=== PATIENT | male | born 1955 | race Caucasian/White ===

== ENCOUNTER 2018-03-04 08:08 | Emergency (ER) | payer OTHER ==
[2018-03-04] MEDS: SOD CHLORIDE 0.9% 1,000 ML IV (09:17)
[2018-03-04] MEDS: LORAZEPAM 2 MG INJ IV (09:17)
[2018-03-04 09:45] LABS: ADD MAN DIFF? NO
[2018-03-04 09:47] LABS: BASOPHIL # 0.1 10^3/ul (0.0-0.1); BASOPHILS % 0.9 % (0.0-2.0); EOSINOPHILS # 0.1 10^3/ul (0.0-0.5); EOSINOPHILS % 0.5 % (0.0-7.0); HEMATOCRIT 34.4 % (42.0-52.0); HEMOGLOBIN 11.1 g/dl (14.0-18.0); LYMPHOCYTES % 8.7 % (15.0-51.0); MEAN CORPUSCULAR HEMOGLOBIN 27.1 pg (29.0-33.0); MEAN CORPUSCULAR HGB CONC 32.3 g/dl (32.0-37.0); MEAN CORPUSCULAR VOLUME 83.9 fl (82.0-101.0); MONOCYTE # 1.1 10^3/ul (0.3-0.9); MONOCYTES % 9.2 % (0.0-11.0); NEUTROPHIL # 9.6 10^3/ul (1.6-7.5); NEUTROPHILS % 80.2 % (39.0-77.0); PLATELET COUNT 299 10^3/UL (140-415); RED CELL DISTRIBUTION WIDTH 15.9 % (11.5-14.5)
[2018-03-04 10:21] LABS: ALANINE AMINOTRANSFERASE 29 IU/L (13-69); ALBUMIN 3.8 g/dl (3.3-4.9); ALBUMIN/GLOBULIN RATIO 1.15; ALKALINE PHOSPHATASE 116 IU/L (42-121); ANION GAP 14 (8-16); ASPARTATE AMINO TRANSFERASE 45 IU/L (15-46); BILIRUBIN,INDIRECT 0.7 mg/dl (0-1.1); BILIRUBIN,TOTAL 0.7 mg/dl (0.2-1.3); BLOOD UREA NITROGEN 14 mg/dl (7-20); CALCIUM 8.4 mg/dl (8.4-10.2); CARBON DIOXIDE 27 mmol/L (21-31); CHLORIDE 99 mmol/L (97-110); CREATININE 0.72 mg/dl (0.61-1.24); GLUCOSE 83 mg/dl (70-220); LIPASE 125 U/L (23-300); POTASSIUM 4.2 mmol/L (3.5-5.1); SODIUM 136 mmol/L (135-144); TOTAL PROTEIN 7.1 g/dl (6.1-8.1)
[2018-03-04] MEDS: LORAZEPAM 1 MG TAB PO (11:14)
[2018-03-04] MEDS: ENALAPRILAT 1.25 MG INJ IV (11:15)
[2018-03-04] MEDS: KETOROLAC 15 MG INJ IV (11:36)
== END 2018-03-04 15:10 | disposition home or self-care (01) ==
LOC: E/R 08:08
DX: I10 Essential (primary) hypertension (principal); F10.239 Alcohol dependence with withdrawal, unspecified; E86.0 Dehydration
CPT/HCPCS: 36415; 80053; 83690; 85025; 93005; 96374; 96375; 99284-25

== ENCOUNTER 2018-09-11 12:06 | Inpatient (IN) | payer OTHER ==
[~2018-09-11 12:06] MED LIST: LACTATED RINGER'S 1,000 ML IV
[2018-09-11] MEDS ORDERED: DESFLURANE 15 MIN (13:30)
[2018-09-11] MEDS ORDERED: FENTAnyl 50 MCG/ML VIAL (13:36)
[2018-09-11] MEDS ORDERED: ROCURONIUM 50 MG INJ (13:36)
[2018-09-11] MEDS ORDERED: DEXAMETHASONE 4 MG/ML 1 ML INJ (13:36)
[2018-09-11] MEDS ORDERED: PROPOFOL 20 ML (13:36)
[2018-09-11] MEDS ORDERED: ONDANSETRON 4 MG INJ (13:36)
[2018-09-11] MEDS ORDERED: NEOSTIGMINE 3 MG/3 ML SYRINGE (13:36)
[2018-09-11] MEDS ORDERED: GLYCOPYRROLATE 0.4 MG INJ (13:36)
[2018-09-11] MEDS ORDERED: MIDAZOLAM 1 MG/ML 2 ML INJ (13:36)
[2018-09-11] MEDS ORDERED: CEFAZOLIN 1 GM INJ (13:36)
[2018-09-11] MEDS ORDERED: ROPIVACAINE 0.5 % 30 ML VIAL (13:38)
[2018-09-11 13:53] LABS: ADD MAN DIFF? NO
[2018-09-11 13:56] LABS: BASOPHIL # 0.2 10^3/ul (0.0-0.1); BASOPHILS % 2.5 % (0.0-2.0); EOSINOPHILS # 0.5 10^3/ul (0.0-0.5); EOSINOPHILS % 5.5 % (0.0-7.0); HEMATOCRIT 42.6 % (42.0-52.0); HEMOGLOBIN 13.4 g/dl (14.0-18.0); LYMPHOCYTES # 1.9 10^3/ul (0.8-2.9); MEAN CORPUSCULAR HEMOGLOBIN 26.5 pg (29.0-33.0); MEAN CORPUSCULAR HGB CONC 31.5 g/dl (32.0-37.0); MEAN CORPUSCULAR VOLUME 84.4 fl (82.0-101.0); MEAN PLATELET VOLUME 9.9 fl (7.4-10.4); MONOCYTE # 0.8 10^3/ul (0.3-0.9); MONOCYTES % 9.5 % (0.0-11.0); NEUTROPHILS % 59.3 % (39.0-77.0); PLATELET COUNT 293 10^3/UL (140-415); RED BLOOD COUNT 5.05 10^6/ul (4.70-6.10)
[2018-09-11 13:56] LABS: WHITE BLOOD COUNT 8.4 10^3/ul (4.8-10.8)
[2018-09-11 14:19] LABS: ALANINE AMINOTRANSFERASE 16 IU/L (13-69); ALBUMIN 4.6 g/dl (3.3-4.9); ALBUMIN/GLOBULIN RATIO 1.31; ALKALINE PHOSPHATASE 102 IU/L (42-121); ANION GAP 11 (5-13); ASPARTATE AMINO TRANSFERASE 26 IU/L (15-46); BILIRUBIN,INDIRECT 0.5 mg/dl (0-1.1); BILIRUBIN,TOTAL 0.5 mg/dl (0.2-1.3); BLOOD UREA NITROGEN 19 mg/dl (7-20); CALCIUM 9.6 mg/dl (8.4-10.2); CARBON DIOXIDE 28 mmol/L (21-31); CHLORIDE 99 mmol/L (97-110); CREATININE 1.01 mg/dl (0.61-1.24); Estimated GFR > 60 mL/min (>60); GLUCOSE 92 mg/dl (70-220); POTASSIUM 4.7 mmol/L (3.5-5.1); SODIUM 138 mmol/L (135-144); TOTAL PROTEIN 8.1 g/dl (6.1-8.1)
[2018-09-11] MEDS ORDERED: HYDROmorphONE 1 MG/5 ML IV SYRINGE IV (14:30)
[2018-09-11] MEDS ORDERED: hydrALAzine 20 MG INJ IV (14:30)
[2018-09-11] MEDS ORDERED: LABETALOL HCL 20MG INJ IV (14:30)
[2018-09-11] MEDS ORDERED: IPRATROPIUM (NEB) 0.5 MG/2.5 ML AMP HHN (14:30)
[2018-09-11] MEDS ORDERED: DIPHENHYDRAMINE 50 MG INJ IV (14:30)
[2018-09-11] MEDS ORDERED: MEPERIDINE 25 MG INJ IV (14:30)
[2018-09-11] MEDS ORDERED: FENTAnyl 50 MCG/ML VIAL IV ×3 (14:30)
[2018-09-11] MEDS ORDERED: EPHEDrine SULFATE 50 MG/5 ML SYG IV (14:30)
[2018-09-11] MEDS ORDERED: OXYCODONE/ACETAMINOPHEN (5/325) TAB PO ×2 (14:30)
[2018-09-11] MEDS ORDERED: ALBUTEROL 0.083% (NEB) 2.5 MG/3 ML AMP HHN (14:30)
[2018-09-11] MEDS ORDERED: MIDAZOLAM 1 MG/ML 2 ML INJ IV (14:30)
[2018-09-11] MEDS ORDERED: TRIMETHOBENZAMIDE 100 MG/ML VIAL IM (14:30)
[2018-09-11] MEDS ORDERED: TOBRAMYCIN 1.2 GM POWDER ×2 (15:45→16:14)
[2018-09-11] MEDS: TOBRAMYCIN 1.2 GM POWDER ×2 (15:56→15:59)
[2018-09-11] MEDS: VANCOMYCIN 1 GM INJ ×2 (15:56→15:58)
[2018-09-11] MEDS ORDERED: SUGAMMADEX SODIUM 200 MG/2 ML VIAL IV (17:20)
[2018-09-11] MEDS: HYDROmorphONE 1 MG/5 ML IV SYRINGE IV ×3 (17:58→18:17)
[2018-09-11] MEDS: ONDANSETRON 4 MG INJ IV (17:59)
[2018-09-11] MEDS ORDERED: HYDROCODONE/APAP (10/325) TAB PO (18:00)
[2018-09-11] MEDS ORDERED: ONDANSETRON 4 MG INJ IV (18:30)
[2018-09-11] MEDS ORDERED: HYDROmorphONE 0.5 MG/0.5 ML SYG IV (18:30)
[2018-09-11] MEDS ORDERED: ACETAMINOPHEN 325 MG TAB PO (18:30)
[2018-09-11] MEDS ORDERED: NACL 0.9% 3 ML SYG IV (18:30)
[2018-09-11] MEDS: SOD CHLORIDE 0.9% 1,000 ML IV (20:27)
[2018-09-11] MEDS: GABAPENTIN 300 MG CAP PO (20:27)
[2018-09-11] MEDS: ATORVASTATIN 40 MG TAB PO (20:27)
[2018-09-11] MEDS: MEROPENEM 1 GM/50ML(PMX) 50 ML IVPB (20:27)
[2018-09-11] MEDS: HYDROmorphONE 1 MG/ML SYG IV (20:28)
[2018-09-12] MEDS: HYDROmorphONE 1 MG/ML SYG IV ×7 (05:15→21:11)
[2018-09-12] MEDS: MEROPENEM 1 GM/50ML(PMX) 50 ML IVPB ×3 (05:15→21:08)
[2018-09-12 07:20] LABS: ADD MAN DIFF? NO
[2018-09-12 07:26] LABS: ABNORMAL IP MESSAGE 1; BASOPHILS % 0.2 % (0.0-2.0); EOSINOPHILS % 0.1 % (0.0-7.0); HEMATOCRIT 36.7 % (42.0-52.0); HEMOGLOBIN 11.7 g/dl (14.0-18.0); LYMPHOCYTES # 0.5 10^3/ul (0.8-2.9); LYMPHOCYTES % 3.9 % (15.0-51.0); MEAN CORPUSCULAR HEMOGLOBIN 26.9 pg (29.0-33.0); MEAN CORPUSCULAR HGB CONC 31.9 g/dl (32.0-37.0); MEAN CORPUSCULAR VOLUME 84.4 fl (82.0-101.0); MEAN PLATELET VOLUME 10.9 fl (7.4-10.4); MONOCYTE # 0.5 10^3/ul (0.3-0.9); MONOCYTES % 4.2 % (0.0-11.0); NEUTROPHIL # 11.6 10^3/ul (1.6-7.5); PLATELET COUNT 260 10^3/UL (140-415); POSITIVE DIFF @See below; RED BLOOD COUNT 4.35 10^6/ul (4.70-6.10); RED CELL DISTRIBUTION WIDTH 18.7 % (11.5-14.5)
[2018-09-12 07:26] LABS: WHITE BLOOD COUNT 12.7 10^3/ul (4.8-10.8)
[2018-09-12 07:42] LABS: ALANINE AMINOTRANSFERASE 19 IU/L (13-69); ALBUMIN 3.9 g/dl (3.3-4.9); ALBUMIN/GLOBULIN RATIO 1.25; ALKALINE PHOSPHATASE 76 IU/L (42-121); ANION GAP 10 (5-13); ASPARTATE AMINO TRANSFERASE 26 IU/L (15-46); BILIRUBIN,INDIRECT 0.3 mg/dl (0-1.1); BILIRUBIN,TOTAL 0.3 mg/dl (0.2-1.3); BLOOD UREA NITROGEN 24 mg/dl (7-20); CALCIUM 9.5 mg/dl (8.4-10.2); CARBON DIOXIDE 29 mmol/L (21-31); CHLORIDE 99 mmol/L (97-110); CREATININE 1.08 mg/dl (0.61-1.24); Estimated GFR > 60 mL/min (>60); GLUCOSE 133 mg/dl (70-220); MAGNESIUM 1.9 mg/dl (1.7-2.5); SODIUM 138 mmol/L (135-144)
[2018-09-12] MEDS: LISINOPRIL 20 MG TAB PO (08:19)
[2018-09-12] MEDS: CHLORTHALIDONE 25 MG TAB PO (08:19)
[2018-09-12] MEDS: GABAPENTIN 300 MG CAP PO ×3 (08:19→21:08)
[2018-09-12] MEDS: AMLODIPINE 10 MG TAB PO (08:19)
[2018-09-12] MEDS ORDERED: VANCOMYCIN IV PER PHARMACY XX (09:30)
[2018-09-12] MEDS: SOD CHLORIDE 0.9% 1,000 ML IV ×2 (11:09→21:15)
[2018-09-12] MEDS: SENNA TAB PO (12:45)
[2018-09-12] MEDS: VANCOMYCIN 750 MG in SOD CHLORIDE 0.9% 150 ML IVPB (12:46)
[2018-09-12] MEDS: NICOTINE (7 MG/24 HR) PATCH TRANSDERM (12:46)
[2018-09-12] MEDS: morphine 2 MG INJ IV (14:54)
[2018-09-12] MEDS: ATORVASTATIN 40 MG TAB PO (21:08)
[2018-09-13] MEDS: HYDROmorphONE 1 MG/ML SYG IV ×6 (00:02→16:23)
[2018-09-13] MEDS: VANCOMYCIN 750 MG in SOD CHLORIDE 0.9% 150 ML IVPB ×2 (00:41→16:23)
[2018-09-13] MEDS: MEROPENEM 1 GM/50ML(PMX) 50 ML IVPB ×3 (05:35→21:56)
[2018-09-13] MEDS: OXYCODONE/ACETAMINOPHEN (5/325) TAB PO ×3 (07:54→23:35)
[2018-09-13] MEDS: GABAPENTIN 300 MG CAP PO ×3 (08:34→20:28)
[2018-09-13] MEDS: AMLODIPINE 10 MG TAB PO (08:35)
[2018-09-13] MEDS: NICOTINE (7 MG/24 HR) PATCH TRANSDERM (08:35)
[2018-09-13] MEDS: SENNA TAB PO (08:35)
[2018-09-13] MEDS: LISINOPRIL 20 MG TAB PO (08:35)
[2018-09-13] MEDS: CHLORTHALIDONE 25 MG TAB PO (08:35)
[2018-09-13] MEDS: DOCUSATE SODIUM 250 MG CAP PO (08:36)
[2018-09-13] MEDS: MUPIROCIN 2% 22 GM OINT TOP ×2 (13:31→20:28)
[2018-09-13 14:55] LABS: VANCOMYCIN,TROUGH 8.6 ug/ml (10.0-20.0)
[2018-09-13] MEDS: LIDOCAINE 1% (MPF) 5 ML VIAL SC (15:55)
[2018-09-13] MEDS ORDERED: morphine 4 MG/ML VIAL IV (17:30)
[2018-09-13] MEDS ORDERED: LACTOBACILLUS RHAMNOSUS CAP (19:51)
[2018-09-13] MEDS: morphine 2 MG INJ IV (20:22)
[2018-09-13] MEDS: LACTOBACILLUS RHAMNOSUS CAP PO (20:28)
[2018-09-13] MEDS: ATORVASTATIN 40 MG TAB PO (20:28)
[2018-09-13] MEDS: VANCOMYCIN 1 GM 250 ML IVPB (23:27)
[2018-09-14] MEDS ORDERED: VANCOMYCIN 1 GM 250 ML IVPB (01:00)
[2018-09-14] MEDS: morphine 2 MG INJ IV (01:16)
[2018-09-14] MEDS: SOD CHLORIDE 0.9% 1,000 ML IV (02:16)
[2018-09-14] MEDS: MEROPENEM 1 GM/50ML(PMX) 50 ML IVPB ×2 (05:22→15:29)
[2018-09-14] MEDS: LEVOFLOXACIN 500 MG TAB PO (05:23)
[2018-09-14] MEDS: HYDROmorphONE 1 MG/ML SYG IV ×6 (06:31→22:56)
[2018-09-14 07:14] LABS: BLOOD UREA NITROGEN 18 mg/dl (7-20)
[2018-09-14 07:14] LABS: CREATININE 0.95 mg/dl (0.61-1.24)
[2018-09-14] MEDS: CHLORTHALIDONE 25 MG TAB PO (08:50)
[2018-09-14] MEDS: GABAPENTIN 300 MG CAP PO ×3 (08:51→21:18)
[2018-09-14] MEDS: AMLODIPINE 10 MG TAB PO (08:51)
[2018-09-14] MEDS: LACTOBACILLUS RHAMNOSUS CAP PO ×2 (08:51→21:17)
[2018-09-14] MEDS: LISINOPRIL 20 MG TAB PO (08:52)
[2018-09-14] MEDS: MUPIROCIN 2% 22 GM OINT TOP ×2 (08:52→21:18)
[2018-09-14] MEDS: NICOTINE (7 MG/24 HR) PATCH TRANSDERM (08:53)
[2018-09-14] MEDS: DOCUSATE SODIUM 250 MG CAP PO (09:00)
[2018-09-14] MEDS: SENNA TAB PO (09:00)
[2018-09-14] MEDS: VANCOMYCIN 1.25 GM in SOD CHLORIDE 0.9% 250 ML IVPB (12:14)
[2018-09-14] MEDS: DEXTROSE 5%-0.45% NACL 1,000 ML IV ×2 (13:01→22:30)
[2018-09-14] MEDS: OXYCODONE/ACETAMINOPHEN (5/325) TAB PO ×2 (14:04→21:23)
[2018-09-14 15:27] LABS: C-REACTIVE PROTEIN 0.6 mg/dl (0.0-0.9)
[2018-09-14] MEDS: ATORVASTATIN 40 MG TAB PO (21:17)
[2018-09-15] MEDS: VANCOMYCIN 1.25 GM in SOD CHLORIDE 0.9% 250 ML IVPB ×2 (00:12→11:50)
[2018-09-15] MEDS: HYDROmorphONE 1 MG/ML SYG IV ×6 (02:16→21:05)
[2018-09-15 05:17] LABS: ADD MAN DIFF? NO
[2018-09-15 05:20] LABS: WHITE BLOOD COUNT 12.1 10^3/ul (4.8-10.8)
[2018-09-15 05:20] LABS: BASOPHIL # 0.2 10^3/ul (0.0-0.1); BASOPHILS % 1.4 % (0.0-2.0); EOSINOPHILS # 0.7 10^3/ul (0.0-0.5); EOSINOPHILS % 5.6 % (0.0-7.0); HEMATOCRIT 33.8 % (42.0-52.0); HEMOGLOBIN 10.6 g/dl (14.0-18.0); LYMPHOCYTES # 2.3 10^3/ul (0.8-2.9); LYMPHOCYTES % 19.3 % (15.0-51.0); MEAN CORPUSCULAR HGB CONC 31.4 g/dl (32.0-37.0); MEAN PLATELET VOLUME 10.6 fl (7.4-10.4); MONOCYTE # 1.4 10^3/ul (0.3-0.9); MONOCYTES % 11.7 % (0.0-11.0); NEUTROPHIL # 7.4 10^3/ul (1.6-7.5); NEUTROPHILS % 61.5 % (39.0-77.0); PLATELET COUNT 232 10^3/UL (140-415); RED BLOOD COUNT 3.93 10^6/ul (4.70-6.10); RED CELL DISTRIBUTION WIDTH 19.7 % (11.5-14.5)
[2018-09-15] MEDS: DEXTROSE 5%-0.45% NACL 1,000 ML IV ×2 (05:23→17:50)
[2018-09-15] MEDS: LEVOFLOXACIN 500 MG TAB PO (05:28)
[2018-09-15 05:50] LABS: ANION GAP 10 (5-13); BLOOD UREA NITROGEN 18 mg/dl (7-20); CALCIUM 8.6 mg/dl (8.4-10.2); CARBON DIOXIDE 29 mmol/L (21-31); CHLORIDE 101 mmol/L (97-110); CREATININE 1.08 mg/dl (0.61-1.24); Estimated GFR > 60 mL/min (>60); GLUCOSE 96 mg/dl (70-220); MAGNESIUM 2.2 mg/dl (1.7-2.5); PHOSPHORUS 4.4 mg/dl (2.5-4.9); POTASSIUM 4.7 mmol/L (3.5-5.1); SODIUM 140 mmol/L (135-144)
[2018-09-15] MEDS ORDERED: HYDROmorphONE 1 MG/5 ML IV SYRINGE IV ×2 (08:00)
[2018-09-15] MEDS ORDERED: MEPERIDINE 25 MG INJ IV (08:00)
[2018-09-15] MEDS ORDERED: ONDANSETRON 4 MG INJ IV (08:00)
[2018-09-15] MEDS ORDERED: DIPHENHYDRAMINE 50 MG INJ IV (08:00)
[2018-09-15] MEDS ORDERED: MIDAZOLAM 1 MG/ML 2 ML INJ (08:07)
[2018-09-15] MEDS ORDERED: METOCLOPRAMIDE 10 MG INJ (08:07)
[2018-09-15] MEDS ORDERED: FENTAnyl 50 MCG/ML VIAL (08:09)
[2018-09-15] MEDS ORDERED: ONDANSETRON 4 MG INJ (08:09)
[2018-09-15] MEDS ORDERED: PROPOFOL 20 ML (08:09)
[2018-09-15] MEDS ORDERED: EPHEDrine SULFATE 50 MG/5 ML SYG (08:22)
[2018-09-15] MEDS: BACITRACIN 50000 UNITS INJ (08:35)
[2018-09-15] MEDS: POLYMYXIN B 500000 UNIT INJ (08:35)
[2018-09-15] MEDS: DOCUSATE SODIUM 250 MG CAP PO (09:00)
[2018-09-15] MEDS: SENNA TAB PO (09:00)
[2018-09-15] MEDS: HYDROmorphONE 1 MG/5 ML IV SYRINGE IV (10:21)
[2018-09-15] MEDS: MUPIROCIN 2% 22 GM OINT TOP ×2 (10:53→21:07)
[2018-09-15] MEDS: NICOTINE (14 MG/24 HR) PATCH TRANSDERM (10:54)
[2018-09-15] MEDS: GABAPENTIN 300 MG CAP PO ×3 (10:54→21:05)
[2018-09-15] MEDS: AMLODIPINE 10 MG TAB PO (10:55)
[2018-09-15] MEDS: CHLORTHALIDONE 25 MG TAB PO (10:55)
[2018-09-15] MEDS: LACTOBACILLUS RHAMNOSUS CAP PO ×2 (10:55→21:06)
[2018-09-15] MEDS: LISINOPRIL 20 MG TAB PO (10:57)
[2018-09-15] MEDS: ATORVASTATIN 40 MG TAB PO (21:05)
[2018-09-15] MEDS: OXYCODONE/ACETAMINOPHEN (5/325) TAB PO (22:13)
[2018-09-16] MEDS: HYDROmorphONE 1 MG/ML SYG IV ×8 (00:09→23:24)
[2018-09-16] MEDS: VANCOMYCIN 1.25 GM in SOD CHLORIDE 0.9% 250 ML IVPB (00:09)
[2018-09-16] MEDS: DEXTROSE 5%-0.45% NACL 1,000 ML IV (04:23)
[2018-09-16] MEDS: OXYCODONE/ACETAMINOPHEN (5/325) TAB PO ×2 (04:40→20:51)
[2018-09-16 05:35] LABS: ADD MAN DIFF? NO
[2018-09-16 05:50] LABS: WHITE BLOOD COUNT 8.9 10^3/ul (4.8-10.8)
[2018-09-16 05:50] LABS: BASOPHIL # 0.1 10^3/ul (0.0-0.1); BASOPHILS % 1.2 % (0.0-2.0); EOSINOPHILS # 0.7 10^3/ul (0.0-0.5); EOSINOPHILS % 7.4 % (0.0-7.0); HEMATOCRIT 29.5 % (42.0-52.0); HEMOGLOBIN 9.4 g/dl (14.0-18.0); LYMPHOCYTES # 1.7 10^3/ul (0.8-2.9); LYMPHOCYTES % 18.5 % (15.0-51.0); MEAN CORPUSCULAR HEMOGLOBIN 27.3 pg (29.0-33.0); MEAN CORPUSCULAR HGB CONC 31.9 g/dl (32.0-37.0); MEAN CORPUSCULAR VOLUME 85.8 fl (82.0-101.0); MEAN PLATELET VOLUME 10.5 fl (7.4-10.4); MONOCYTES % 11.3 % (0.0-11.0); NEUTROPHIL # 5.5 10^3/ul (1.6-7.5); NEUTROPHILS % 61.3 % (39.0-77.0); PLATELET COUNT 225 10^3/UL (140-415); RED BLOOD COUNT 3.44 10^6/ul (4.70-6.10); RED CELL DISTRIBUTION WIDTH 19.3 % (11.5-14.5)
[2018-09-16] MEDS: LEVOFLOXACIN 500 MG TAB PO (06:19)
[2018-09-16 06:27] LABS: ANION GAP 7 (5-13); BLOOD UREA NITROGEN 17 mg/dl (7-20); CALCIUM 8.3 mg/dl (8.4-10.2); CARBON DIOXIDE 30 mmol/L (21-31); CHLORIDE 98 mmol/L (97-110); CREATININE 1.04 mg/dl (0.61-1.24); Estimated GFR > 60 mL/min (>60); GLUCOSE 112 mg/dl (70-220); PHOSPHORUS 4.4 mg/dl (2.5-4.9); POTASSIUM 4.9 mmol/L (3.5-5.1); SODIUM 135 mmol/L (135-144)
[2018-09-16] MEDS: NICOTINE (14 MG/24 HR) PATCH TRANSDERM (08:17)
[2018-09-16] MEDS: DOCUSATE SODIUM 250 MG CAP PO (08:18)
[2018-09-16] MEDS: AMLODIPINE 10 MG TAB PO (08:18)
[2018-09-16] MEDS: CHLORTHALIDONE 25 MG TAB PO (08:18)
[2018-09-16] MEDS: LACTOBACILLUS RHAMNOSUS CAP PO ×2 (08:18→20:49)
[2018-09-16] MEDS: GABAPENTIN 300 MG CAP PO ×3 (08:18→20:49)
[2018-09-16] MEDS: LISINOPRIL 20 MG TAB PO (08:19)
[2018-09-16] MEDS: MUPIROCIN 2% 22 GM OINT TOP ×2 (08:19→20:50)
[2018-09-16] MEDS: SENNA TAB PO (08:19)
[2018-09-16 11:59] LABS: VANCOMYCIN,TROUGH 25.3 ug/ml (10.0-20.0)
[2018-09-16] MEDS: ATORVASTATIN 40 MG TAB PO (20:49)
[2018-09-16] MEDS: VANCOMYCIN 750 MG in SOD CHLORIDE 0.9% 150 ML IVPB (23:30)
[2018-09-17] MEDS: HYDROmorphONE 1 MG/ML SYG IV ×7 (02:57→23:23)
[2018-09-17] MEDS: LEVOFLOXACIN 500 MG TAB PO (06:17)
[2018-09-17 07:13] LABS: CREATININE 0.97 mg/dl (0.61-1.24)
[2018-09-17 07:13] LABS: BLOOD UREA NITROGEN 19 mg/dl (7-20)
[2018-09-17] MEDS: OXYCODONE/ACETAMINOPHEN (5/325) TAB PO ×2 (07:40→17:33)
[2018-09-17] MEDS: DOCUSATE SODIUM 250 MG CAP PO (09:42)
[2018-09-17] MEDS: SENNA TAB PO (09:42)
[2018-09-17] MEDS: NICOTINE (14 MG/24 HR) PATCH TRANSDERM (09:42)
[2018-09-17] MEDS: GABAPENTIN 300 MG CAP PO ×3 (09:42→20:05)
[2018-09-17] MEDS: CHLORTHALIDONE 25 MG TAB PO (09:42)
[2018-09-17] MEDS: LACTOBACILLUS RHAMNOSUS CAP PO ×2 (09:42→20:05)
[2018-09-17] MEDS: AMLODIPINE 10 MG TAB PO (09:42)
[2018-09-17] MEDS: LISINOPRIL 20 MG TAB PO (09:43)
[2018-09-17] MEDS: VANCOMYCIN 750 MG in SOD CHLORIDE 0.9% 150 ML IVPB ×2 (13:05→23:23)
[2018-09-17] MEDS: MUPIROCIN 2% 22 GM OINT TOP ×2 (13:07→20:06)
[2018-09-17] MEDS: ATORVASTATIN 40 MG TAB PO (20:05)
[2018-09-18] MEDS: OXYCODONE/ACETAMINOPHEN (5/325) TAB PO ×4 (00:14→22:46)
[2018-09-18] MEDS: HYDROmorphONE 1 MG/ML SYG IV ×6 (05:34→20:43)
[2018-09-18] MEDS: LEVOFLOXACIN 500 MG TAB PO (05:34)
[2018-09-18] MEDS: LACTOBACILLUS RHAMNOSUS CAP PO ×2 (08:43→20:42)
[2018-09-18] MEDS: SENNA TAB PO (08:44)
[2018-09-18] MEDS: AMLODIPINE 10 MG TAB PO (08:44)
[2018-09-18] MEDS: DOCUSATE SODIUM 250 MG CAP PO (08:44)
[2018-09-18] MEDS: CHLORTHALIDONE 25 MG TAB PO (08:45)
[2018-09-18] MEDS: GABAPENTIN 300 MG CAP PO ×3 (08:45→20:43)
[2018-09-18] MEDS: LISINOPRIL 20 MG TAB PO (08:45)
[2018-09-18] MEDS: NICOTINE (14 MG/24 HR) PATCH TRANSDERM (08:46)
[2018-09-18] MEDS: MUPIROCIN 2% 22 GM OINT TOP ×2 (10:30→20:43)
[2018-09-18] MEDS: VANCOMYCIN 750 MG in SOD CHLORIDE 0.9% 150 ML IVPB (11:42)
[2018-09-18] MEDS: LIDOCAINE 1% (MPF) 5 ML VIAL SC (19:42)
[2018-09-18] MEDS: ATORVASTATIN 40 MG TAB PO (20:43)
[2018-09-18 23:45] LABS: VANCOMYCIN,TROUGH 14.9 ug/ml (10.0-20.0)
[2018-09-19] MEDS: HYDROmorphONE 1 MG/ML SYG IV ×4 (00:27→13:09)
[2018-09-19] MEDS: VANCOMYCIN 750 MG in SOD CHLORIDE 0.9% 150 ML IVPB ×2 (00:27→14:59)
[2018-09-19] MEDS: LEVOFLOXACIN 500 MG TAB PO (05:48)
[2018-09-19] MEDS: DOCUSATE SODIUM 250 MG CAP PO (09:05)
[2018-09-19] MEDS: LACTOBACILLUS RHAMNOSUS CAP PO ×2 (09:05→21:55)
[2018-09-19] MEDS: GABAPENTIN 300 MG CAP PO ×3 (09:06→21:56)
[2018-09-19] MEDS: AMLODIPINE 10 MG TAB PO (09:06)
[2018-09-19] MEDS: SENNA TAB PO (09:06)
[2018-09-19] MEDS: CHLORTHALIDONE 25 MG TAB PO (09:06)
[2018-09-19] MEDS: LISINOPRIL 20 MG TAB PO (09:07)
[2018-09-19] MEDS: MUPIROCIN 2% 22 GM OINT TOP ×2 (09:07→21:56)
[2018-09-19] MEDS: NICOTINE (14 MG/24 HR) PATCH TRANSDERM (09:07)
[2018-09-19] MEDS ORDERED: HYDROmorphONE 2 MG TAB PO (10:00)
[2018-09-19] MEDS ORDERED: HYDROmorphONE 1 MG/ML SYG (13:00)
[2018-09-19] MEDS ORDERED: oxyCODONE (CR) 10 MG TAB [oxyCONTIN] PO (13:00)
[2018-09-19] MEDS: oxyCODONE (CR) 10 MG TAB [oxyCONTIN] PO ×2 (13:08→21:56)
[2018-09-19] MEDS: OXYCODONE/ACETAMINOPHEN (5/325) TAB PO ×2 (15:05→19:21)
[2018-09-19] MEDS: ATORVASTATIN 40 MG TAB PO (21:56)
[2018-09-20] MEDS: VANCOMYCIN 750 MG in SOD CHLORIDE 0.9% 150 ML IVPB ×2 (00:32→12:08)
[2018-09-20] MEDS: OXYCODONE/ACETAMINOPHEN (5/325) TAB PO ×6 (01:26→22:49)
[2018-09-20] MEDS: LEVOFLOXACIN 500 MG TAB PO (05:44)
[2018-09-20 07:29] LABS: CREATININE 1.04 mg/dl (0.61-1.24)
[2018-09-20 07:29] LABS: BLOOD UREA NITROGEN 19 mg/dl (7-20)
[2018-09-20] MEDS: oxyCODONE (CR) 10 MG TAB [oxyCONTIN] PO ×2 (08:49→20:56)
[2018-09-20] MEDS: SENNA TAB PO (08:49)
[2018-09-20] MEDS: CHLORTHALIDONE 25 MG TAB PO (08:49)
[2018-09-20] MEDS: DOCUSATE SODIUM 250 MG CAP PO (08:49)
[2018-09-20] MEDS: GABAPENTIN 300 MG CAP PO ×3 (08:49→20:55)
[2018-09-20] MEDS: LACTOBACILLUS RHAMNOSUS CAP PO ×2 (08:49→20:56)
[2018-09-20] MEDS: NICOTINE (14 MG/24 HR) PATCH TRANSDERM (08:50)
[2018-09-20] MEDS: AMLODIPINE 10 MG TAB PO (08:50)
[2018-09-20] MEDS: LISINOPRIL 20 MG TAB PO (08:51)
[2018-09-20] MEDS: MUPIROCIN 2% 22 GM OINT TOP ×2 (08:53→20:57)
[2018-09-20] MEDS: ATORVASTATIN 40 MG TAB PO (20:56)
[2018-09-21] MEDS: VANCOMYCIN 750 MG in SOD CHLORIDE 0.9% 150 ML IVPB ×3 (00:41→23:42)
[2018-09-21] MEDS: OXYCODONE/ACETAMINOPHEN (5/325) TAB PO ×3 (02:50→10:54)
[2018-09-21] MEDS: LEVOFLOXACIN 500 MG TAB PO (06:51)
[2018-09-21] MEDS: LACTOBACILLUS RHAMNOSUS CAP PO ×2 (08:55→20:28)
[2018-09-21] MEDS: DOCUSATE SODIUM 250 MG CAP PO (08:55)
[2018-09-21] MEDS: LISINOPRIL 20 MG TAB PO (08:56)
[2018-09-21] MEDS: SENNA TAB PO (08:56)
[2018-09-21] MEDS: AMLODIPINE 10 MG TAB PO (08:56)
[2018-09-21] MEDS: oxyCODONE (CR) 10 MG TAB [oxyCONTIN] PO ×2 (08:56→20:29)
[2018-09-21] MEDS: GABAPENTIN 300 MG CAP PO ×3 (08:56→20:28)
[2018-09-21] MEDS: NICOTINE (14 MG/24 HR) PATCH TRANSDERM (08:57)
[2018-09-21] MEDS: CHLORTHALIDONE 25 MG TAB PO (08:57)
[2018-09-21] MEDS: MUPIROCIN 2% 22 GM OINT TOP ×2 (09:15→20:28)
[2018-09-21] MEDS: OXYCODONE/ACETAMINOPHEN (10/325) TAB PO ×3 (15:03→23:09)
[2018-09-21] MEDS: ATORVASTATIN 40 MG TAB PO (20:28)
[2018-09-22] MEDS: OXYCODONE/ACETAMINOPHEN (10/325) TAB PO ×5 (03:12→19:55)
[2018-09-22] MEDS: ALTEPLASE (CATHFLO) 2 MG INJ CATHETER (03:35)
[2018-09-22 05:29] LABS: CREATININE 1.19 mg/dl (0.61-1.24)
[2018-09-22 05:29] LABS: BLOOD UREA NITROGEN 20 mg/dl (7-20)
[2018-09-22] MEDS: LEVOFLOXACIN 500 MG TAB PO (05:38)
[2018-09-22] MEDS: NICOTINE (14 MG/24 HR) PATCH TRANSDERM (08:35)
[2018-09-22] MEDS: LACTOBACILLUS RHAMNOSUS CAP PO ×2 (08:35→21:11)
[2018-09-22] MEDS: AMLODIPINE 10 MG TAB PO (08:35)
[2018-09-22] MEDS: SENNA TAB PO (08:36)
[2018-09-22] MEDS: CHLORTHALIDONE 25 MG TAB PO (08:36)
[2018-09-22] MEDS: LISINOPRIL 20 MG TAB PO (08:36)
[2018-09-22] MEDS: DOCUSATE SODIUM 250 MG CAP PO (08:36)
[2018-09-22] MEDS: GABAPENTIN 300 MG CAP PO ×3 (08:36→21:11)
[2018-09-22] MEDS: oxyCODONE (CR) 10 MG TAB [oxyCONTIN] PO ×2 (08:39→21:11)
[2018-09-22] MEDS: MUPIROCIN 2% 22 GM OINT TOP ×2 (08:42→21:13)
[2018-09-22 12:12] LABS: VANCOMYCIN,TROUGH 18.1 ug/ml (10.0-20.0)
[2018-09-22] MEDS: VANCOMYCIN 750 MG in SOD CHLORIDE 0.9% 150 ML IVPB (12:17)
[2018-09-22] MEDS: NICOTINE (21 MG/24 HR) PATCH TRANSDERM (12:57)
[2018-09-22] MEDS: ATORVASTATIN 40 MG TAB PO (21:11)
[2018-09-23] MEDS: OXYCODONE/ACETAMINOPHEN (10/325) TAB PO ×6 (04:03→21:31)
[2018-09-23] MEDS: LEVOFLOXACIN 500 MG TAB PO (05:33)
[2018-09-23 06:25] LABS: ADD MAN DIFF? NO
[2018-09-23 06:30] LABS: BASOPHIL # 0.1 10^3/ul (0.0-0.1); BASOPHILS % 1.7 % (0.0-2.0); EOSINOPHILS # 0.7 10^3/ul (0.0-0.5); EOSINOPHILS % 8.3 % (0.0-7.0); HEMATOCRIT 27.1 % (42.0-52.0); HEMOGLOBIN 8.6 g/dl (14.0-18.0); LYMPHOCYTES # 1.9 10^3/ul (0.8-2.9); LYMPHOCYTES % 22.5 % (15.0-51.0); MEAN CORPUSCULAR HEMOGLOBIN 26.9 pg (29.0-33.0); MEAN CORPUSCULAR HGB CONC 31.7 g/dl (32.0-37.0); MEAN CORPUSCULAR VOLUME 84.7 fl (82.0-101.0); MEAN PLATELET VOLUME 9.1 fl (7.4-10.4); MONOCYTE # 1.2 10^3/ul (0.3-0.9); MONOCYTES % 13.8 % (0.0-11.0); NEUTROPHIL # 4.4 10^3/ul (1.6-7.5); NEUTROPHILS % 53.3 % (39.0-77.0); PLATELET COUNT 351 10^3/UL (140-415); RED CELL DISTRIBUTION WIDTH 18.7 % (11.5-14.5)
[2018-09-23 06:30] LABS: WHITE BLOOD COUNT 8.3 10^3/ul (4.8-10.8)
[2018-09-23 07:02] LABS: ALBUMIN 3.2 g/dl (3.3-4.9); ANION GAP 7 (5-13); BLOOD UREA NITROGEN 20 mg/dl (7-20); CALCIUM 8.7 mg/dl (8.4-10.2); CARBON DIOXIDE 31 mmol/L (21-31); CHLORIDE 100 mmol/L (97-110); CREATININE 1.17 mg/dl (0.61-1.24); GLUCOSE 91 mg/dl (70-220); PHOSPHORUS 4.7 mg/dl (2.5-4.9); POTASSIUM 4.7 mmol/L (3.5-5.1); SODIUM 138 mmol/L (135-144)
[2018-09-23] MEDS: LACTOBACILLUS RHAMNOSUS CAP PO ×2 (08:10→20:18)
[2018-09-23] MEDS: NICOTINE (21 MG/24 HR) PATCH TRANSDERM (08:10)
[2018-09-23] MEDS: DOCUSATE SODIUM 250 MG CAP PO (08:11)
[2018-09-23] MEDS: SENNA TAB PO (08:11)
[2018-09-23] MEDS: GABAPENTIN 300 MG CAP PO ×3 (08:13→20:18)
[2018-09-23] MEDS: oxyCODONE (CR) 10 MG TAB [oxyCONTIN] PO ×2 (08:16→20:18)
[2018-09-23] MEDS: MUPIROCIN 2% 22 GM OINT TOP ×2 (08:18→20:20)
[2018-09-23] MEDS: CHLORTHALIDONE 25 MG TAB PO (09:05)
[2018-09-23] MEDS: LISINOPRIL 20 MG TAB PO (09:05)
[2018-09-23] MEDS: AMLODIPINE 10 MG TAB PO (09:06)
[2018-09-23] MEDS: VANCOMYCIN 750 MG in SOD CHLORIDE 0.9% 150 ML IVPB ×2 (12:27)
[2018-09-23] MEDS: ATORVASTATIN 40 MG TAB PO (20:18)
[2018-09-24] MEDS: OXYCODONE/ACETAMINOPHEN (10/325) TAB PO ×5 (02:17→20:56)
[2018-09-24] MEDS: LEVOFLOXACIN 500 MG TAB PO (05:43)
[2018-09-24 06:39] LABS: ADD MAN DIFF? NO
[2018-09-24 06:57] LABS: BASOPHIL # 0.1 10^3/ul (0.0-0.1); BASOPHILS % 1.9 % (0.0-2.0); EOSINOPHILS # 0.6 10^3/ul (0.0-0.5); EOSINOPHILS % 8.2 % (0.0-7.0); HEMATOCRIT 28.3 % (42.0-52.0); HEMOGLOBIN 9.1 g/dl (14.0-18.0); LYMPHOCYTES # 1.7 10^3/ul (0.8-2.9); LYMPHOCYTES % 25.3 % (15.0-51.0); MEAN CORPUSCULAR HEMOGLOBIN 27.4 pg (29.0-33.0); MEAN CORPUSCULAR HGB CONC 32.2 g/dl (32.0-37.0); MEAN CORPUSCULAR VOLUME 85.2 fl (82.0-101.0); MONOCYTE # 0.8 10^3/ul (0.3-0.9); MONOCYTES % 11.3 % (0.0-11.0); NEUTROPHIL # 3.6 10^3/ul (1.6-7.5); NEUTROPHILS % 52.9 % (39.0-77.0); PLATELET COUNT 360 10^3/UL (140-415); RED BLOOD COUNT 3.32 10^6/ul (4.70-6.10); RED CELL DISTRIBUTION WIDTH 18.9 % (11.5-14.5)
[2018-09-24 06:57] LABS: WHITE BLOOD COUNT 6.8 10^3/ul (4.8-10.8)
[2018-09-24 07:30] LABS: ANION GAP 8 (5-13); BLOOD UREA NITROGEN 20 mg/dl (7-20); CALCIUM 8.2 mg/dl (8.4-10.2); CARBON DIOXIDE 31 mmol/L (21-31); CHLORIDE 100 mmol/L (97-110); CREATININE 1.21 mg/dl (0.61-1.24); Estimated GFR > 60 mL/min (>60); GLUCOSE 104 mg/dl (70-220); MAGNESIUM 1.9 mg/dl (1.7-2.5); PHOSPHORUS 5.6 mg/dl (2.5-4.9); POTASSIUM 4.4 mmol/L (3.5-5.1); SODIUM 139 mmol/L (135-144)
[2018-09-24] MEDS: DOCUSATE SODIUM 250 MG CAP PO (08:43)
[2018-09-24] MEDS: VANCOMYCIN 500MG/NS (PMX) 100 ML IVPB ×2 (08:43→21:00)
[2018-09-24] MEDS: CHLORTHALIDONE 25 MG TAB PO (08:44)
[2018-09-24] MEDS: LACTOBACILLUS RHAMNOSUS CAP PO ×2 (08:44→20:56)
[2018-09-24] MEDS: AMLODIPINE 10 MG TAB PO (08:45)
[2018-09-24] MEDS: GABAPENTIN 300 MG CAP PO ×3 (08:45→20:56)
[2018-09-24] MEDS: SENNA TAB PO (08:46)
[2018-09-24] MEDS: LISINOPRIL 20 MG TAB PO (08:46)
[2018-09-24] MEDS: oxyCODONE (CR) 10 MG TAB [oxyCONTIN] PO ×2 (08:46→22:23)
[2018-09-24] MEDS: NICOTINE (21 MG/24 HR) PATCH TRANSDERM (08:47)
[2018-09-24] MEDS: MUPIROCIN 2% 22 GM OINT TOP ×2 (08:49→21:07)
[2018-09-24] MEDS: ATORVASTATIN 40 MG TAB PO (20:55)
[2018-09-25] MEDS: OXYCODONE/ACETAMINOPHEN (10/325) TAB PO ×4 (00:57→13:09)
[2018-09-25] MEDS: LEVOFLOXACIN 500 MG TAB PO (05:07)
[2018-09-25] MEDS: VANCOMYCIN 500MG/NS (PMX) 100 ML IVPB (08:59)
[2018-09-25] MEDS: LACTOBACILLUS RHAMNOSUS CAP PO (09:02)
[2018-09-25] MEDS: AMLODIPINE 10 MG TAB PO (09:02)
[2018-09-25] MEDS: DOCUSATE SODIUM 250 MG CAP PO (09:02)
[2018-09-25] MEDS: SENNA TAB PO (09:02)
[2018-09-25] MEDS: NICOTINE (21 MG/24 HR) PATCH TRANSDERM (09:03)
[2018-09-25] MEDS: LISINOPRIL 20 MG TAB PO (09:03)
[2018-09-25] MEDS: CHLORTHALIDONE 25 MG TAB PO (09:03)
[2018-09-25] MEDS: GABAPENTIN 300 MG CAP PO ×2 (09:03→12:33)
[2018-09-25] MEDS: MUPIROCIN 2% 22 GM OINT TOP (09:10)
[2018-09-25] MEDS: oxyCODONE (CR) 10 MG TAB [oxyCONTIN] PO (10:08)
== END 2018-09-25 14:20 | DRG 501 ==
LOC: SDS 12:06 → REC 18:03 → PP2 19:14
PROC: 0RHJ08Z Insertion of Spacer into Right Shoulder Joint, Open Approach (ICD-10-PCS; principal; 2018-09-11 14:45)
PROC: 0MD10ZZ Extraction of Right Shoulder Bursa and Ligament, Open Approach (ICD-10-PCS; 2018-09-11 14:45)
PROC: 0RPJ08Z Removal of Spacer from Right Shoulder Joint, Open Approach (ICD-10-PCS; 2018-09-11 14:45)
PROC: 3E0U029 Introduction of Other Anti-infective into Joints, Open Approach (ICD-10-PCS; 2018-09-11 14:45)
PROC: 2W18X6Z Compression of Right Upper Extremity using Pressure Dressing (ICD-10-PCS; 2018-09-11 14:45)
PROC: 02HV33Z Insertion of Infusion Device into Superior Vena Cava, Percutaneous Approach (ICD-10-PCS; 2018-09-11 14:45)
DX: T84.59XA Infection and inflammatory reaction due to other internal joint prosthesis, initial encounter (principal); M00.9 Pyogenic arthritis, unspecified; E78.5 Hyperlipidemia, unspecified; F17.200 Nicotine dependence, unspecified, uncomplicated; G89.29 Other chronic pain; F39 Unspecified mood [affective] disorder; I10 Essential (primary) hypertension; J43.9 Emphysema, unspecified; Z96.612 Presence of left artificial shoulder joint; Z96.611 Presence of right artificial shoulder joint; Z22.322 Carrier or suspected carrier of Methicillin resistant Staphylococcus aureus; Z88.0 Allergy status to penicillin; Z88.2 Allergy status to sulfonamides
CPT/HCPCS: 36569; 71045; 76937; 80048; 80053; 80069; 80202; 82565; 83735; 84100; 84520; 85025; 86140; 86850; 86900; 86901; 86999; 87040; 87070; 87075; 87081; 87102; 87116; 88300

== ENCOUNTER 2019-02-26 11:28 | Inpatient (IN) | payer MEDICARE, OTHER ==
[~2019-02-26 11:28] MED LIST changes: +CEFAZOLIN 2 GM/50 ML (PMX) 50 ML IVPB; -LACTATED RINGER'S 1,000 ML IV
[2019-02-26] MEDS: LACTATED RINGER'S 1,000 ML IV (12:21)
[2019-02-26] MEDS: TRANEXAMIC ACID 1GM/100ML(PMX) 100 ML IV (13:00)
[2019-02-26] MEDS ORDERED: FENTAnyl 50 MCG/ML VIAL (14:25)
[2019-02-26] MEDS ORDERED: MIDAZOLAM 1 MG/ML 2 ML INJ (14:25)
[2019-02-26] MEDS ORDERED: PROPOFOL 20 ML (14:27)
[2019-02-26] MEDS ORDERED: LIDOCAINE 2% (SDV) 5 ML INJ (14:27)
[2019-02-26] MEDS ORDERED: ROPIVACAINE 0.5 % 30 ML VIAL (14:28)
[2019-02-26] MEDS ORDERED: CEFAZOLIN 1 GM INJ (14:54)
[2019-02-26] MEDS ORDERED: FAMOTIDINE 20 MG INJ (14:58)
[2019-02-26] MEDS ORDERED: DEXAMETHASONE 4 MG/ML 5 ML INJ (14:58)
[2019-02-26] MEDS ORDERED: TRANEXAMIC ACID 1GM/100ML(PMX) 100 ML (14:58)
[2019-02-26] MEDS ORDERED: ONDANSETRON 4 MG INJ (14:58)
[2019-02-26] MEDS ORDERED: EPHEDrine 25 MG/5 ML SYG (14:58)
[2019-02-26] MEDS: POLYMYXIN B 500000 UNIT INJ (15:09)
[2019-02-26] MEDS: BACITRACIN 50000 UNITS INJ (15:09)
[2019-02-26] MEDS ORDERED: ROCURONIUM 50 MG INJ ×2 (15:12→15:36)
[2019-02-26] MEDS ORDERED: SUCCINYLCHOLINE CHLORIDE 100 MG/5 ML SYG IV (15:12)
[2019-02-26] MEDS ORDERED: PROCHLORPERAZINE 10 MG INJ IV (15:30)
[2019-02-26] MEDS ORDERED: LABETALOL HCL 20MG INJ IV (15:30)
[2019-02-26] MEDS ORDERED: HYDROmorphONE 1 MG/5 ML IV SYRINGE IV (15:30)
[2019-02-26] MEDS ORDERED: DIPHENHYDRAMINE 50 MG INJ IV (15:30)
[2019-02-26] MEDS ORDERED: EPHEDrine SULFATE 50 MG/5 ML SYG IV (15:30)
[2019-02-26] MEDS ORDERED: hydrALAzine 20 MG INJ IV (15:30)
[2019-02-26] MEDS ORDERED: ONDANSETRON 4 MG INJ IV (15:30)
[2019-02-26] MEDS ORDERED: OXYCODONE/ACETAMINOPHEN (5/325) TAB PO (15:30)
[2019-02-26] MEDS: VANCOMYCIN 1 GM INJ (16:11)
[2019-02-26] MEDS ORDERED: SUGAMMADEX SODIUM 200 MG/2 ML VIAL IV (16:21)
[2019-02-26] MEDS ORDERED: HYDROmorphONE 2 MG/ML SYG (16:33)
[2019-02-26] MEDS ORDERED: GLYCOPYRROLATE 0.4 MG INJ (17:02)
[2019-02-26] MEDS: HYDROmorphONE 1 MG/5 ML IV SYRINGE IV ×2 (17:51→19:05)
[2019-02-26] MEDS: FENTAnyl 50 MCG/ML VIAL IV (18:01)
[2019-02-26] MEDS: MEPERIDINE 25 MG INJ IV (18:37)
[2019-02-26] MEDS ORDERED: ACETAMINOPHEN 325 MG TAB PO (19:00)
[2019-02-26] MEDS ORDERED: NACL 0.9% 3 ML SYG IV (19:00)
[2019-02-26] MEDS: ATORVASTATIN 40 MG TAB PO (21:41)
[2019-02-26] MEDS: morphine 2 MG INJ IV (21:41)
[2019-02-26] MEDS: SERTRALINE 50 MG TAB PO (21:41)
[2019-02-26] MEDS: CEFAZOLIN 2 GM/50 ML (PMX) 50 ML IVPB (21:58)
[2019-02-27] MEDS: HYDROCODONE/APAP (5/325) TAB PO ×3 (00:07→13:56)
[2019-02-27] MEDS ORDERED: ALBUTEROL/IPRATROPIUM (NEB) 3 ML AMP HHN (02:30)
[2019-02-27] MEDS: morphine 2 MG INJ IV ×6 (03:17→20:42)
[2019-02-27 05:34] LABS: ADD MAN DIFF? NO
[2019-02-27 05:40] LABS: WHITE BLOOD COUNT 14.9 10^3/ul (4.8-10.8)
[2019-02-27 05:40] LABS: BASOPHILS % 0.3 % (0.0-2.0); HEMATOCRIT 38.2 % (42.0-52.0); HEMOGLOBIN 12.3 g/dl (14.0-18.0); LYMPHOCYTES # 0.8 10^3/ul (0.8-2.9); LYMPHOCYTES % 5.4 % (15.0-51.0); MEAN CORPUSCULAR HEMOGLOBIN 27.5 pg (29.0-33.0); MEAN CORPUSCULAR HGB CONC 32.2 g/dl (32.0-37.0); MEAN CORPUSCULAR VOLUME 85.3 fl (82.0-101.0); MEAN PLATELET VOLUME 10.2 fl (7.4-10.4); MONOCYTE # 1.3 10^3/ul (0.3-0.9); MONOCYTES % 8.5 % (0.0-11.0); NEUTROPHIL # 12.7 10^3/ul (1.6-7.5); NEUTROPHILS % 85.2 % (39.0-77.0); PLATELET COUNT 272 10^3/UL (140-415); RED BLOOD COUNT 4.48 10^6/ul (4.70-6.10); RED CELL DISTRIBUTION WIDTH 15.9 % (11.5-14.5)
[2019-02-27 06:00] LABS: ANION GAP 10 (5-13); BLOOD UREA NITROGEN 22 mg/dl (7-20); CALCIUM 9.1 mg/dl (8.4-10.2); CARBON DIOXIDE 27 mmol/L (21-31); CHLORIDE 99 mmol/L (97-110); CREATININE 1.08 mg/dl (0.61-1.24); Estimated GFR > 60 mL/min (>60); GLUCOSE 133 mg/dl (70-220); MAGNESIUM 1.8 mg/dl (1.7-2.5); PHOSPHORUS 3.4 mg/dl (2.5-4.9); POTASSIUM 4.7 mmol/L (3.5-5.1); SODIUM 136 mmol/L (135-144)
[2019-02-27] MEDS: CEFAZOLIN 2 GM/50 ML (PMX) 50 ML IVPB ×2 (07:44→15:23)
[2019-02-27] MEDS: CHLORTHALIDONE 25 MG TAB PO (08:45)
[2019-02-27] MEDS: AMLODIPINE 10 MG TAB PO (08:46)
[2019-02-27] MEDS: LISINOPRIL 20 MG TAB PO (08:46)
[2019-02-27] MEDS: HYDROCODONE/APAP (10/325) TAB PO ×2 (19:47→22:38)
[2019-02-27] MEDS: ATORVASTATIN 40 MG TAB PO (20:42)
[2019-02-27] MEDS: SERTRALINE 50 MG TAB PO (20:44)
[2019-02-27] MEDS: KETOROLAC 30 MG INJ IV (21:58)
[2019-02-28] MEDS: morphine 2 MG INJ IV ×5 (00:44→21:11)
[2019-02-28] MEDS: HYDROCODONE/APAP (10/325) TAB PO ×7 (01:42→22:36)
[2019-02-28 05:11] LABS: ABNORMAL IP MESSAGE 1; ADD MAN DIFF? NO; BASOPHIL # 0.1 10^3/ul (0.0-0.1); BASOPHILS % 0.8 % (0.0-2.0); EOSINOPHILS # 0.2 10^3/ul (0.0-0.5); EOSINOPHILS % 1.2 % (0.0-7.0); HEMOGLOBIN 10.1 g/dl (14.0-18.0); LYMPHOCYTES # 1.8 10^3/ul (0.8-2.9); MEAN CORPUSCULAR HEMOGLOBIN 27.4 pg (29.0-33.0); MEAN CORPUSCULAR HGB CONC 31.6 g/dl (32.0-37.0); MEAN CORPUSCULAR VOLUME 86.7 fl (82.0-101.0); MEAN PLATELET VOLUME 10.4 fl (7.4-10.4); MONOCYTE # 1.7 10^3/ul (0.3-0.9); MONOCYTES % 13.5 % (0.0-11.0); PLATELET COUNT 218 10^3/UL (140-415); POSITIVE DIFF @See below; RED BLOOD COUNT 3.69 10^6/ul (4.70-6.10); RED CELL DISTRIBUTION WIDTH 16.2 % (11.5-14.5)
[2019-02-28 05:11] LABS: WHITE BLOOD COUNT 12.9 10^3/ul (4.8-10.8)
[2019-02-28 05:38] LABS: MAGNESIUM 2.3 mg/dl (1.7-2.5)
[2019-02-28 05:38] LABS: PHOSPHORUS 3.6 mg/dl (2.5-4.9)
[2019-02-28 05:41] LABS: ALANINE AMINOTRANSFERASE 14 IU/L (13-69); ALBUMIN 3.3 g/dl (3.3-4.9); ALBUMIN/GLOBULIN RATIO 1.22; ALKALINE PHOSPHATASE 63 IU/L (42-121); ANION GAP 4 (5-13); ASPARTATE AMINO TRANSFERASE 18 IU/L (15-46); BLOOD UREA NITROGEN 33 mg/dl (7-20); CALCIUM 8.6 mg/dl (8.4-10.2); CARBON DIOXIDE 34 mmol/L (21-31); CHLORIDE 100 mmol/L (97-110); CREATININE 1.32 mg/dl (0.61-1.24); Estimated GFR 55 mL/min (>60); GLUCOSE 88 mg/dl (70-220); POTASSIUM 4.7 mmol/L (3.5-5.1); SODIUM 138 mmol/L (135-144)
[2019-02-28] MEDS: KETOROLAC 30 MG INJ IV ×3 (05:45→22:36)
[2019-02-28] MEDS: AMLODIPINE 10 MG TAB PO (09:09)
[2019-02-28] MEDS: CHLORTHALIDONE 25 MG TAB PO (09:10)
[2019-02-28] MEDS: LISINOPRIL 20 MG TAB PO (09:10)
[2019-02-28] MEDS: NICOTINE (14 MG/24 HR) PATCH TRANSDERM (09:12)
[2019-02-28] MEDS: ENOXAPARIN 40 MG/0.4 ML SYG SC (09:12)
[2019-02-28] MEDS: ATORVASTATIN 40 MG TAB PO (21:11)
[2019-02-28] MEDS: SERTRALINE 50 MG TAB PO (21:12)
[2019-02-28] MEDS: DOCUSATE SODIUM 100 MG CAP PO (21:24)
[2019-03-01] MEDS: morphine 2 MG INJ IV ×6 (01:10→21:34)
[2019-03-01] MEDS: HYDROCODONE/APAP (10/325) TAB PO ×3 (04:21→12:21)
[2019-03-01] MEDS: KETOROLAC 30 MG INJ IV (05:31)
[2019-03-01] MEDS: DOCUSATE SODIUM 100 MG CAP PO ×2 (08:56→21:38)
[2019-03-01] MEDS: NICOTINE (14 MG/24 HR) PATCH TRANSDERM (08:57)
[2019-03-01] MEDS: ENOXAPARIN 30 MG/0.3 ML SYG SC (08:59)
[2019-03-01] MEDS: AMLODIPINE 10 MG TAB PO (09:02)
[2019-03-01] MEDS: ONDANSETRON 4 MG INJ IV (18:51)
[2019-03-01] MEDS: ATORVASTATIN 40 MG TAB PO (20:33)
[2019-03-01] MEDS: SERTRALINE 50 MG TAB PO (20:33)
[2019-03-02] MEDS ORDERED: PANTOPRAZOLE 40 MG INJ IV (04:00)
[2019-03-02] MEDS ORDERED: VANCOMYCIN IV PER PHARMACY XX (04:00)
[2019-03-02] MEDS: SOD CHLORIDE 0.9% 500 ML IV ×2 (04:12→06:09)
[2019-03-02] MEDS: ONDANSETRON 4 MG INJ IV (05:10)
[2019-03-02] MEDS: VANCOMYCIN HCL 1.5 GM in SOD CHLORIDE 0.9% 250 ML IVPB (05:38)
[2019-03-02] MEDS: Pantoprazole 80 mg in NS 100 ml LD IV (05:38)
[2019-03-02] MEDS: METOCLOPRAMIDE 10 MG INJ IV (05:43)
[2019-03-02] MEDS: PANTOPRAZOLE IV 80 MG in SOD CHLORIDE 0.9% 100 ML IV ×2 (06:00→22:26)
[2019-03-02 06:38] LABS: ADD MAN DIFF? NO
[2019-03-02 06:46] LABS: WHITE BLOOD COUNT 12.5 10^3/ul (4.8-10.8)
[2019-03-02 06:46] LABS: ABNORMAL IP MESSAGE 1; BASOPHILS % 0.3 % (0.0-2.0); EOSINOPHILS % 0.2 % (0.0-7.0); HEMATOCRIT 18.7 % (42.0-52.0); LYMPHOCYTES % 7.8 % (15.0-51.0); MEAN CORPUSCULAR HGB CONC 31.6 g/dl (32.0-37.0); MEAN CORPUSCULAR VOLUME 88.6 fl (82.0-101.0); MEAN PLATELET VOLUME 10.7 fl (7.4-10.4); MONOCYTE # 0.7 10^3/ul (0.3-0.9); MONOCYTES % 5.7 % (0.0-11.0); NEUTROPHIL # 10.7 10^3/ul (1.6-7.5); NEUTROPHILS % 85.1 % (39.0-77.0); PLATELET COUNT 205 10^3/UL (140-415); POSITIVE DIFF @See below; RED BLOOD COUNT 2.11 10^6/ul (4.70-6.10); RED CELL DISTRIBUTION WIDTH 16.5 % (11.5-14.5)
[2019-03-02] MEDS: SOD CHLORIDE 0.9% 1,000 ML IV ×4 (06:48→22:00)
[2019-03-02 07:00] LABS: HEMOGLOBIN 5.9 g/dl (14.0-18.0)
[2019-03-02 07:11] LABS: ANION GAP 6 (5-13); BLOOD UREA NITROGEN 94 mg/dl (7-20); CALCIUM 7.3 mg/dl (8.4-10.2); CARBON DIOXIDE 22 mmol/L (21-31); CHLORIDE 110 mmol/L (97-110); CREATININE 1.08 mg/dl (0.61-1.24); Estimated GFR > 60 mL/min (>60); GLUCOSE 105 mg/dl (70-220); POTASSIUM 4.8 mmol/L (3.5-5.1); SODIUM 138 mmol/L (135-144)
[2019-03-02] MEDS: LISINOPRIL 10 MG TAB PO (08:18)
[2019-03-02] MEDS: AMLODIPINE 10 MG TAB PO (08:18)
[2019-03-02] MEDS: NICOTINE (14 MG/24 HR) PATCH TRANSDERM (08:27)
[2019-03-02 10:10] LABS: IMMEDIATE SPIN CROSSMATCH 1 4
[2019-03-02 10:58] LABS: ANISOCYTOSIS 1+ (0-0); BAND NEUTROPHILS #M 0.2 10^3/ul (0.0-0.6); BAND NEUTROPHILS % (M) 2 % (0-4); BASOPHIL #M 0.1 10^3/ul (0.0-0.0); BASOPHILS % (M) 1 % (0-2); GIANT THROMBO% (M) 5 % (0-0); LYMPHOCYTES #M 1.1 10^3/ul (0.8-2.9); LYMPHOCYTES % (M) 9 % (15-51); MONOCYTE #M 0.3 10^3/ul (0.3-0.9); MONOCYTES % (M) 3 % (0-11); PLATELET ESTIMATE NORMAL; POIKILOCYTOSIS 1+ (0-0); SEG NEUT #M 10.7 10^3/ul (1.6-7.5); SEGMENTED NEUTROPHILS (M) % 85 % (39-77); SMUDGE%M 3 % (0-0)
[2019-03-02] MEDS: morphine 2 MG INJ IV ×2 (15:31→23:31)
[2019-03-02] MEDS: LORAZEPAM 2 MG INJ IV (17:02)
[2019-03-02] MEDS: VANCOMYCIN 1 GM 250 ML IVPB (18:20)
[2019-03-02 20:18] LABS: HEMATOCRIT 25.3 % (42.0-52.0); HEMOGLOBIN 8.3 g/dl (14.0-18.0)
[2019-03-02] MEDS: SERTRALINE 50 MG TAB PO (22:26)
[2019-03-02] MEDS: ATORVASTATIN 40 MG TAB PO (22:26)
[2019-03-03] MEDS: PANTOPRAZOLE IV 80 MG in SOD CHLORIDE 0.9% 100 ML IV ×2 (00:30→12:08)
[2019-03-03] MEDS: ZOLPIDEM 5 MG TAB PO (00:37)
[2019-03-03] MEDS: SOD CHLORIDE 0.9% 1,000 ML IV ×5 (03:00→17:32)
[2019-03-03] MEDS: morphine 2 MG INJ IV ×4 (04:36→21:40)
[2019-03-03] MEDS: VANCOMYCIN 1 GM 250 ML IVPB ×2 (04:47→17:31)
[2019-03-03 06:12] LABS: ADD MAN DIFF? NO
[2019-03-03] MEDS: LORAZEPAM 2 MG INJ IV ×2 (06:15→10:20)
[2019-03-03 06:20] LABS: WHITE BLOOD COUNT 9.9 10^3/ul (4.8-10.8)
[2019-03-03 06:20] LABS: BASOPHIL # 0.1 10^3/ul (0.0-0.1); BASOPHILS % 0.7 % (0.0-2.0); EOSINOPHILS # 0.5 10^3/ul (0.0-0.5); EOSINOPHILS % 5.3 % (0.0-7.0); HEMATOCRIT 21.9 % (42.0-52.0); HEMOGLOBIN 7.3 g/dl (14.0-18.0); LYMPHOCYTES # 1.4 10^3/ul (0.8-2.9); MEAN CORPUSCULAR HEMOGLOBIN 28.5 pg (29.0-33.0); MEAN CORPUSCULAR HGB CONC 33.3 g/dl (32.0-37.0); MEAN CORPUSCULAR VOLUME 85.5 fl (82.0-101.0); MEAN PLATELET VOLUME 10.2 fl (7.4-10.4); MONOCYTE # 0.8 10^3/ul (0.3-0.9); MONOCYTES % 8.4 % (0.0-11.0); NEUTROPHILS % 71.1 % (39.0-77.0); PLATELET COUNT 215 10^3/UL (140-415); RED BLOOD COUNT 2.56 10^6/ul (4.70-6.10); RED CELL DISTRIBUTION WIDTH 15.7 % (11.5-14.5)
[2019-03-03 06:50] LABS: ALANINE AMINOTRANSFERASE 24 IU/L (13-69); ALBUMIN 2.6 g/dl (3.3-4.9); ALBUMIN/GLOBULIN RATIO 1.04; ALKALINE PHOSPHATASE 48 IU/L (42-121); ANION GAP 5 (5-13); ASPARTATE AMINO TRANSFERASE 24 IU/L (15-46); BILIRUBIN,INDIRECT 0.4 mg/dl (0-1.1); BILIRUBIN,TOTAL 0.4 mg/dl (0.2-1.3); BLOOD UREA NITROGEN 38 mg/dl (7-20); CALCIUM 7.6 mg/dl (8.4-10.2); CARBON DIOXIDE 25 mmol/L (21-31); CHLORIDE 109 mmol/L (97-110); CREATININE 0.76 mg/dl (0.61-1.24); Estimated GFR > 60 mL/min (>60); GLUCOSE 94 mg/dl (70-220); POTASSIUM 3.8 mmol/L (3.5-5.1); SODIUM 139 mmol/L (135-144); TOTAL PROTEIN 5.1 g/dl (6.1-8.1)
[2019-03-03] MEDS: NICOTINE (14 MG/24 HR) PATCH TRANSDERM (09:35)
[2019-03-03] MEDS: LIDOCAINE 100 MG SYRINGE (15:49)
[2019-03-03] MEDS: PROPOFOL 20 ML ×2 (15:49)
[2019-03-03] MEDS: FENTAnyl 50 MCG/ML VIAL (15:50)
[2019-03-03] MEDS: HYDROCODONE/APAP (10/325) TAB PO ×2 (18:44→22:28)
[2019-03-03] MEDS: SERTRALINE 50 MG TAB PO (21:33)
[2019-03-03] MEDS: ATORVASTATIN 40 MG TAB PO (21:33)
[2019-03-04] MEDS: morphine 2 MG INJ IV ×5 (01:13→18:27)
[2019-03-04] MEDS: HYDROCODONE/APAP (10/325) TAB PO ×6 (01:55→22:37)
[2019-03-04] MEDS: PANTOPRAZOLE IV 80 MG in SOD CHLORIDE 0.9% 100 ML IV ×3 (01:56→16:30)
[2019-03-04] MEDS: VANCOMYCIN 1 GM 250 ML IVPB ×2 (06:01→21:29)
[2019-03-04 06:13] LABS: ADD MAN DIFF? NO
[2019-03-04 06:19] LABS: ABNORMAL IP MESSAGE 1; BASOPHIL # 0.1 10^3/ul (0.0-0.1); BASOPHILS % 0.7 % (0.0-2.0); EOSINOPHILS # 0.3 10^3/ul (0.0-0.5); EOSINOPHILS % 4.5 % (0.0-7.0); HEMATOCRIT 20.9 % (42.0-52.0); LYMPHOCYTES # 1.2 10^3/ul (0.8-2.9); LYMPHOCYTES % 15.9 % (15.0-51.0); MEAN CORPUSCULAR HEMOGLOBIN 28.8 pg (29.0-33.0); MEAN CORPUSCULAR VOLUME 87.1 fl (82.0-101.0); MEAN PLATELET VOLUME 9.8 fl (7.4-10.4); MONOCYTE # 0.8 10^3/ul (0.3-0.9); MONOCYTES % 11.2 % (0.0-11.0); NEUTROPHILS % 67.2 % (39.0-77.0); PLATELET COUNT 214 10^3/UL (140-415); POSITIVE DIFF @See below; RED CELL DISTRIBUTION WIDTH 15.2 % (11.5-14.5)
[2019-03-04 06:19] LABS: WHITE BLOOD COUNT 7.5 10^3/ul (4.8-10.8)
[2019-03-04 06:28] LABS: HEMOGLOBIN 6.9 g/dl (14.0-18.0)
[2019-03-04 06:31] LABS: MAGNESIUM 1.9 mg/dl (1.7-2.5)
[2019-03-04 07:00] LABS: ANION GAP 6 (5-13); BLOOD UREA NITROGEN 18 mg/dl (7-20); CALCIUM 8.2 mg/dl (8.4-10.2); CARBON DIOXIDE 28 mmol/L (21-31); CHLORIDE 103 mmol/L (97-110); Estimated GFR > 60 mL/min (>60); GLUCOSE 111 mg/dl (70-220); POTASSIUM 3.7 mmol/L (3.5-5.1); SODIUM 137 mmol/L (135-144)
[2019-03-04] MEDS: LORAZEPAM 2 MG INJ IV (07:58)
[2019-03-04] MEDS: SOD CHLORIDE 0.9% 1,000 ML IV ×3 (09:00→13:13)
[2019-03-04] MEDS: NICOTINE (14 MG/24 HR) PATCH TRANSDERM (09:26)
[2019-03-04 16:50] LABS: VANCOMYCIN,TROUGH 11.6 ug/ml (10.0-20.0)
[2019-03-04] MEDS: SERTRALINE 50 MG TAB PO (21:29)
[2019-03-04] MEDS: ATORVASTATIN 40 MG TAB PO (21:29)
[2019-03-04] MEDS: ZOLPIDEM 5 MG TAB PO (22:37)
[2019-03-05] MEDS: morphine 2 MG INJ IV ×6 (02:29→23:30)
[2019-03-05] MEDS: PANTOPRAZOLE IV 80 MG in SOD CHLORIDE 0.9% 100 ML IV (02:29)
[2019-03-05] MEDS: HYDROCODONE/APAP (10/325) TAB PO ×5 (04:48→21:25)
[2019-03-05 06:05] LABS: ADD MAN DIFF? NO
[2019-03-05 06:07] LABS: WHITE BLOOD COUNT 7.5 10^3/ul (4.8-10.8)
[2019-03-05 06:07] LABS: BASOPHIL # 0.1 10^3/ul (0.0-0.1); BASOPHILS % 0.8 % (0.0-2.0); EOSINOPHILS # 0.5 10^3/ul (0.0-0.5); HEMATOCRIT 27.5 % (42.0-52.0); LYMPHOCYTES # 1.2 10^3/ul (0.8-2.9); LYMPHOCYTES % 15.8 % (15.0-51.0); MEAN CORPUSCULAR HEMOGLOBIN 28.8 pg (29.0-33.0); MEAN CORPUSCULAR HGB CONC 32.7 g/dl (32.0-37.0); MEAN CORPUSCULAR VOLUME 88.1 fl (82.0-101.0); MEAN PLATELET VOLUME 9.6 fl (7.4-10.4); MONOCYTE # 0.9 10^3/ul (0.3-0.9); MONOCYTES % 12.6 % (0.0-11.0); NEUTROPHIL # 4.8 10^3/ul (1.6-7.5); NEUTROPHILS % 64.3 % (39.0-77.0); PLATELET COUNT 216 10^3/UL (140-415); RED BLOOD COUNT 3.12 10^6/ul (4.70-6.10); RED CELL DISTRIBUTION WIDTH 15.2 % (11.5-14.5)
[2019-03-05] MEDS: VANCOMYCIN 1 GM 250 ML IVPB ×2 (06:31→17:00)
[2019-03-05 06:33] LABS: PHOSPHORUS 3.6 mg/dl (2.5-4.9)
[2019-03-05 06:33] LABS: MAGNESIUM 1.8 mg/dl (1.7-2.5)
[2019-03-05 06:47] LABS: ANION GAP 6 (5-13); BLOOD UREA NITROGEN 10 mg/dl (7-20); CALCIUM 8.1 mg/dl (8.4-10.2); CARBON DIOXIDE 29 mmol/L (21-31); CHLORIDE 104 mmol/L (97-110); CREATININE 0.76 mg/dl (0.61-1.24); Estimated GFR > 60 mL/min (>60); GLUCOSE 124 mg/dl (70-220); POTASSIUM 3.7 mmol/L (3.5-5.1); SODIUM 139 mmol/L (135-144)
[2019-03-05] MEDS: NICOTINE (14 MG/24 HR) PATCH TRANSDERM (08:41)
[2019-03-05] MEDS: SUCRALFATE 1 GM TAB PO ×3 (12:36→20:23)
[2019-03-05] MEDS: LIDOCAINE 1% (MPF) 5 ML VIAL SC (17:01)
[2019-03-05] MEDS: PANTOPRAZOLE (EC) 40 MG TAB PO (17:07)
[2019-03-05] MEDS: SERTRALINE 50 MG TAB PO (20:23)
[2019-03-05] MEDS: ATORVASTATIN 40 MG TAB PO (20:23)
[2019-03-06] MEDS: ZOLPIDEM 5 MG TAB PO (00:36)
[2019-03-06] MEDS: morphine 2 MG INJ IV ×5 (04:00→20:11)
[2019-03-06] MEDS: VANCOMYCIN 1 GM 250 ML IVPB ×2 (05:14→17:20)
[2019-03-06] MEDS: HYDROCODONE/APAP (10/325) TAB PO ×5 (05:17→23:06)
[2019-03-06] MEDS: PANTOPRAZOLE (EC) 40 MG TAB PO ×2 (05:19→17:20)
[2019-03-06 06:34] LABS: ADD MAN DIFF? NO
[2019-03-06 06:37] LABS: BASOPHIL # 0.1 10^3/ul (0.0-0.1); BASOPHILS % 0.6 % (0.0-2.0); EOSINOPHILS # 0.3 10^3/ul (0.0-0.5); EOSINOPHILS % 4.1 % (0.0-7.0); HEMATOCRIT 24.7 % (42.0-52.0); HEMOGLOBIN 8.1 g/dl (14.0-18.0); LYMPHOCYTES # 1.3 10^3/ul (0.8-2.9); LYMPHOCYTES % 15.7 % (15.0-51.0); MEAN CORPUSCULAR HEMOGLOBIN 29.2 pg (29.0-33.0); MEAN CORPUSCULAR HGB CONC 32.8 g/dl (32.0-37.0); MEAN CORPUSCULAR VOLUME 89.2 fl (82.0-101.0); MEAN PLATELET VOLUME 9.9 fl (7.4-10.4); MONOCYTES % 12.8 % (0.0-11.0); NEUTROPHIL # 5.3 10^3/ul (1.6-7.5); NEUTROPHILS % 66.1 % (39.0-77.0); PLATELET COUNT 227 10^3/UL (140-415); RED BLOOD COUNT 2.77 10^6/ul (4.70-6.10); RED CELL DISTRIBUTION WIDTH 15.3 % (11.5-14.5)
[2019-03-06 07:00] LABS: ANION GAP 5 (5-13); BLOOD UREA NITROGEN 8 mg/dl (7-20); CALCIUM 7.7 mg/dl (8.4-10.2); CARBON DIOXIDE 27 mmol/L (21-31); CHLORIDE 106 mmol/L (97-110); CREATININE 0.67 mg/dl (0.61-1.24); Estimated GFR > 60 mL/min (>60); GLUCOSE 85 mg/dl (70-220); POTASSIUM 3.5 mmol/L (3.5-5.1); SODIUM 138 mmol/L (135-144)
[2019-03-06 07:02] LABS: PHOSPHORUS 3.6 mg/dl (2.5-4.9)
[2019-03-06 07:02] LABS: MAGNESIUM 1.8 mg/dl (1.7-2.5)
[2019-03-06] MEDS: NICOTINE (14 MG/24 HR) PATCH TRANSDERM (08:49)
[2019-03-06] MEDS: SUCRALFATE 1 GM TAB PO ×4 (08:49→20:10)
[2019-03-06] MEDS: ATORVASTATIN 40 MG TAB PO (20:10)
[2019-03-06] MEDS: SERTRALINE 50 MG TAB PO (20:10)
[2019-03-07] MEDS: morphine 2 MG INJ IV ×3 (00:20→09:01)
[2019-03-07] MEDS: ZOLPIDEM 5 MG TAB PO (00:51)
[2019-03-07 04:54] LABS: ADD MAN DIFF? NO
[2019-03-07 05:00] LABS: BASOPHIL # 0.1 10^3/ul (0.0-0.1); BASOPHILS % 1.1 % (0.0-2.0); EOSINOPHILS # 0.5 10^3/ul (0.0-0.5); EOSINOPHILS % 5.8 % (0.0-7.0); HEMATOCRIT 25.6 % (42.0-52.0); HEMOGLOBIN 8.3 g/dl (14.0-18.0); LYMPHOCYTES # 1.4 10^3/ul (0.8-2.9); LYMPHOCYTES % 16.6 % (15.0-51.0); MEAN CORPUSCULAR HEMOGLOBIN 29.1 pg (29.0-33.0); MEAN CORPUSCULAR HGB CONC 32.4 g/dl (32.0-37.0); MEAN CORPUSCULAR VOLUME 89.8 fl (82.0-101.0); MEAN PLATELET VOLUME 9.4 fl (7.4-10.4); MONOCYTE # 1.3 10^3/ul (0.3-0.9); MONOCYTES % 14.9 % (0.0-11.0); NEUTROPHIL # 5.2 10^3/ul (1.6-7.5); NEUTROPHILS % 60.4 % (39.0-77.0); PLATELET COUNT 257 10^3/UL (140-415); RED BLOOD COUNT 2.85 10^6/ul (4.70-6.10); RED CELL DISTRIBUTION WIDTH 15.5 % (11.5-14.5)
[2019-03-07 05:00] LABS: WHITE BLOOD COUNT 8.5 10^3/ul (4.8-10.8)
[2019-03-07] MEDS: PANTOPRAZOLE (EC) 40 MG TAB PO (05:11)
[2019-03-07] MEDS: VANCOMYCIN 1 GM 250 ML IVPB (05:11)
[2019-03-07 05:25] LABS: ANION GAP 4 (5-13); BLOOD UREA NITROGEN 9 mg/dl (7-20); CARBON DIOXIDE 31 mmol/L (21-31); CHLORIDE 103 mmol/L (97-110); CREATININE 0.71 mg/dl (0.61-1.24); Estimated GFR > 60 mL/min (>60); GLUCOSE 115 mg/dl (70-220); SODIUM 138 mmol/L (135-144)
[2019-03-07 05:27] LABS: PHOSPHORUS 3.7 mg/dl (2.5-4.9)
[2019-03-07] MEDS: HYDROCODONE/APAP (10/325) TAB PO ×2 (06:25→09:55)
[2019-03-07] MEDS: NICOTINE (14 MG/24 HR) PATCH TRANSDERM (08:56)
[2019-03-07] MEDS: SUCRALFATE 1 GM TAB PO (08:56)
== END 2019-03-07 12:00 | disposition home health service (06) | DRG 483 ==
LOC: SDS 11:28 → TEL 03-02 04:30 → PP2 03-05 20:55 → SDS 11:28 → MS1 19:50 → 6WM 03-02 10:55 → SDS 19:22 → MS1 19:22
PROC: 0RRJ00Z Replacement of Right Shoulder Joint with Reverse Ball and Socket Synthetic Substitute, Open Approach (ICD-10-PCS; principal; 2019-02-26 13:30)
PROC: 0RPJ08Z Removal of Spacer from Right Shoulder Joint, Open Approach (ICD-10-PCS; 2019-02-26 13:30)
PROC: 3E0U029 Introduction of Other Anti-infective into Joints, Open Approach (ICD-10-PCS; 2019-02-26 13:30)
PROC: 30233N1 Transfusion of Nonautologous Red Blood Cells into Peripheral Vein, Percutaneous Approach (ICD-10-PCS; 2019-02-26 14:31)
PROC: 0DJ08ZZ Inspection of Upper Intestinal Tract, Via Natural or Artificial Opening Endoscopic (ICD-10-PCS; 2019-02-26 14:31)
DX: Z47.31 Aftercare following explantation of shoulder joint prosthesis (principal); K25.4 Chronic or unspecified gastric ulcer with hemorrhage; K29.71 Gastritis, unspecified, with bleeding; K26.4 Chronic or unspecified duodenal ulcer with hemorrhage; K92.0 Hematemesis; K92.1 Melena; D62 Acute posthemorrhagic anemia; E78.5 Hyperlipidemia, unspecified; F32.9 Major depressive disorder, single episode, unspecified; F41.9 Anxiety disorder, unspecified; F17.200 Nicotine dependence, unspecified, uncomplicated; G89.18 Other acute postprocedural pain; I95.9 Hypotension, unspecified; I10 Essential (primary) hypertension; J43.9 Emphysema, unspecified; R09.02 Hypoxemia; Z88.0 Allergy status to penicillin; Z88.2 Allergy status to sulfonamides
CPT/HCPCS: 36430; 36569; 71045; 73020; 74018; 76937; 80048; 80053; 80202; 82962; 83735; 84100; 84443; 85014; 85018; 85025; 86850; 86900; 86901; 86920; 86999; 87070; 87075; 87102; 87116; 88300; 88304; 88311